=== PATIENT | female | born 2000 | race African-American/Black ===

== ENCOUNTER 2019-03-29 07:39 | Day surgery (SDC) | payer OTHER ==
[2019-03-29] VITALS (13 sets, daily range): BP systolic 125–151; BP diastolic 72–98; PULSE 76–116; RESP 12–26; Ht 162.6 cm; Wt 95.3 kg
[~2019-03-29] VITALS: Ht 162.6 cm; Wt 95.3 kg
[~2019-03-29 07:39] MED LIST: BUPIVACAINE 0.25%/EPI (SDV) 30 ML INJ INJ ONE; DESFLURANE 15 MIN ONE; TRIAMCINOLONE ACET 40 MG/ML INJ INJ ONE
[2019-03-29] MEDS ORDERED: LACTATED RINGER'S 1,000 ML IV SCH (08:30)
[2019-03-29] MEDS ORDERED: TRIAMCINOLONE ACET 40 MG/ML INJ ONE (08:58)
[2019-03-29] MEDS ORDERED: BUPIVACAINE 0.25%/EPI (SDV) 30 ML INJ ONE (08:58)
--- NOTE | 2019-03-29 09:15 | PREAC ---
Date/Time of Note Date/Time of Note DATE: 03/29/19 TIME: 09:13 Anesthesia Eval and Record Evaluation Time Pre-Procedure Interview DATE: 03/29/19 TIME: 09:13 Age 19 Sex female NPO: 8 hrs Preoperative diagnosis frequent tonsil stones Planned procedure bilateral tonsillectomy and adenoidectomy Past Medical History Past Medical History: Includes GI: Obesity Surgery & Anesthesia Issues No known issue Meds Anticoagulation: No Beta Mitzy within 24 hr: No Reason Beta Mitzy not given: Pt. not on B-Mitzy No Active Prescriptions or Reported Meds Current Medications Lactated Ringer's 1,000 ml @ 30 mls/hr Q24H IV Last administered on 03/29/19at 08:34; Admin Dose 30 MLS/HR; Start 03/29/19 at 08:30 Meds reviewed: Yes Allergies Coded Allergies: No Known Allergy (Unverified , 03/29/19) Allergies Reviewed: Yes Labs/Studies Labs Reviewed: Reviewed by anesthesiologist test: Negative Studies: ECG (nml ecg) Pre-procedure Exam Last vitals Vital Signs Date Temp Pulse Resp B/P (MAP) Pulse Ox O2 O2 Flow FiO2 Time Delivery Rate 03/29/19 97.7 76 16 125/72 100 Room Air 08:43 (89) Airway: Adequate mouth opening, Adequate thyromental dist Mallampati: Mallampati II Teeth: Normal (chipped teeth noted on lower front area) Lung: Normal Heart: Normal ASA Physical Status ASA physical status: 2 Emergency: None Planned Anesthetic General/MAC: ETT Pre-operative Attestations Prior to commencing anesthesia and surgery, the patient was re-evaluated, there was verification of: *The patient's identity *The results of appropriate recent lab work and preoperative vital signs *The above evaluation not changing prior to induction *Anesthetic plan, risk benefits, alternative and complications discussed with patient/family; questions answered; patient/family understands, accepts and wishes to proceed. CHESTER HERRERA Mar 29, 2019 09:14
--- NOTE | 2019-03-29 10:39 | HPN ---
Date/Time of Note Date/Time of Note DATE: 03/29/19 TIME: 10:39 Interval H&P Admission Note Pt. seen H&P reviewed: No system changes SYBIL DOMINIQUE M.D. Mar 29, 2019 10:39
[2019-03-29] MEDS ORDERED: NEOSTIGMINE 3 MG/3 ML SYRINGE ONE (10:45)
[2019-03-29] MEDS ORDERED: DEXAMETHASONE 4 MG/ML 5 ML INJ ONE (10:45)
[2019-03-29] MEDS ORDERED: ONDANSETRON 4 MG INJ ONE (10:45)
[2019-03-29] MEDS ORDERED: PROPOFOL 20 ML ONE (10:45)
[2019-03-29] MEDS ORDERED: MIDAZOLAM 1 MG/ML 2 ML INJ ONE (10:45)
[2019-03-29] MEDS ORDERED: ROCURONIUM 50 MG INJ ONE (10:45)
[2019-03-29] MEDS ORDERED: FENTAnyl 50 MCG/ML VIAL ONE (10:45)
[2019-03-29] MEDS ORDERED: CEFAZOLIN 1 GM INJ ONE (10:45)
[2019-03-29] MEDS ORDERED: GLYCOPYRROLATE 0.4 MG INJ ONE (10:45)
[2019-03-29] MEDS ORDERED: TRIAMCINOLONE ACET 40 MG/ML INJ INJ ONE (11:05)
[2019-03-29] MEDS ORDERED: BUPIVACAINE 0.25%/EPI (SDV) 30 ML INJ INJ ONE (11:05)
[2019-03-29] MEDS ORDERED: MIDAZOLAM 1 MG/ML 2 ML INJ IV PRN (12:00)
[2019-03-29] MEDS ORDERED: TRIMETHOBENZAMIDE 100 MG/ML VIAL IM PRN (12:00)
[2019-03-29] MEDS ORDERED: DIPHENHYDRAMINE 50 MG INJ IV PRN (12:00)
[2019-03-29] MEDS ORDERED: hydrALAzine 20 MG INJ IV PRN (12:00)
[2019-03-29] MEDS ORDERED: EPHEDrine 25 MG/5 ML SYG IV PRN (12:00)
[2019-03-29] MEDS ORDERED: IPRATROPIUM (NEB) 0.5 MG/2.5 ML AMP HHN PRN (12:00)
[2019-03-29] MEDS ORDERED: FENTAnyl 50 MCG/ML VIAL IV PRN ×3 (12:00)
[2019-03-29] MEDS ORDERED: OXYCODONE/ACETAMINOPHEN (5/325) TAB PO PRN ×2 (12:00)
[2019-03-29] MEDS ORDERED: LABETALOL HCL 20MG INJ IV PRN (12:00)
[2019-03-29] MEDS ORDERED: ONDANSETRON 4 MG INJ IV PRN (12:00)
[2019-03-29] MEDS ORDERED: HYDROmorphONE 1 MG/5 ML IV SYRINGE IV PRN ×3 (12:00)
[2019-03-29] MEDS ORDERED: ALBUTEROL 0.083% (NEB) 2.5 MG/3 ML AMP HHN PRN (12:00)
[2019-03-29] MEDS ORDERED: MEPERIDINE 25 MG INJ IV PRN (12:00)
--- NOTE | 2019-03-29 12:05 | OPR ---
Date/Time of Note Date/Time of Note DATE: 03/29/19 TIME: 12:01 Operative Report Procedure Date: Mar 29, 2019 Preoperative Diagnosis 1. MOHSEN. 2. PARTIAL UPPER AIRWAY OBSTRUCTION. 3. TONSILLAR AND ADENOID TISSUE HYPERTROPHY. Postoperative Diagnosis SAME. Operation/Procedure Performed 1. BILATERAL TONSILLECTOMY. 2, ADENOIDECTOMY. Surgeon see signature line Varnish Blender NONE. Anesthesia Type: general (WITH OT TUBE INTUBATION. 20 CC MARCIAINE 1/4% WITH EPI 1:200,000 SOLN. ) Estimated Blood Loss: 10 - 50 ml's Transfusion none Specimen LEFT AND RIGHT TONSILLAR TISSUE, ADENOID TISSUE. Grafts/Implants none Tubes/Drains NONE. Complications none Pt Condition Post Procedure: stable Disposition: PACU Indications TO IMPROVE BREATHING. Procedure Description SEE DICTATED OPERATIVE REPORT. SYBIL DOMINIQUE M.D. Mar 29, 2019 12:05
--- NOTE | 2019-03-29 12:07 | PDOCDIS ---
Discharge Instructions DIAGNOSIS Discharge Diagnosis 1. MOHSEN. 2. PARTIAL UPPER AIRWAY OBSTRUCTION. 3. TONSILLAR AND ADENOID TISSUE HYPERTROPHY. CONDITION [id number] Patient Condition: [id number] Good HOME CARE INSTRUCTIONS: [id number] Diet Instructions: Kaioh5x Regular (NO HOT OR SPICY FOODS. DRINK LOTS OF FLUIDS. ) ACTIVITY: [id number] Activity Restrictions: [id number] Slowly Increase Activity Rest between Activity Avoid heavy lifting Avoid Heavy Housework [id number] Bathing Restrictions: [id number] Tub Bath FOLLOW UP/APPOINTMENTS Follow-up Plan MY OFFICE IN 10 TO 14 DAYS. SCHOOL/WORK RELEASE May return to School/Work on: Apr 12, 2019 May return to School/Work with: No Restrictions SYBIL DOMINIQUE M.D. Mar 29, 2019 12:07
--- NOTE | 2019-03-29 12:14 | PAC ---
Date/Time of Note Date/Time of Note DATE: 03/29/19 TIME: 12:13 Post-Anesthesia Notes Post-Anesthesia Note Last documented vital signs Vital Signs Date Temp Pulse Resp B/P (MAP) Pulse Ox O2 O2 Flow FiO2 Time Delivery Rate 03/29/19 97.7 76 16 125/72 100 Room Air 08:43 (89) Activity: WNL Respiratory function: WNL Cardiovascular function: WNL Mental status: Baseline Pain reasonably controlled: Yes Hydration appropriate: Yes Nausea/Vomiting absent: Yes Jose M Regalado M.D. Mar 29, 2019 12:14
--- NOTE | 2019-03-29 14:57 | OPR ---
DATE OF OPERATION: 03/29/2019 SURGEON: Malachi Rich MD PREOPERATIVE DIAGNOSES: 1. Obstructive sleep apnea. 2. Partial upper airway obstruction. 3. Bilateral tonsillar and adenoid tissue hypertrophy. POSTOPERATIVE DIAGNOSES: 1. Obstructive sleep apnea. 2. Partial upper airway obstruction. 3. Bilateral tonsillar and adenoid tissue hypertrophy. OPERATION PERFORMED: 1. Bilateral tonsillectomy. 2. Adenoidectomy. ESTIMATED BLOOD LOSS: Less than 30 mL. COMPLICATIONS: None. SPECIMENS SENT TO LABORATORY: Left and right tonsils separately with adenoid tissue. ANESTHETIC USED: General anesthesia with orotracheal tube intubation. The patient also received 20 mL of Marcaine 0.25% with epinephrine 1:200,000 solution. The patient also required 1 mL of Kenalog 40 mg in the soft palate. The patient was also given IV Ancef and Decadron before the case was begun . FINDINGS DURING PROCEDURE: Enlarged tonsils bilaterally with chronic changes. There is also a minim al amount of adenoid tissue in the nasopharynx present. No signs of malignancies or tumors, submucou s cleft or bifid uvula seen during the procedure. INDICATIONS: Ms. Bhargavi Luis is a 19-year-old female who has history of obstructive sleep apnea wi th loud snores breathing with cessation breathing at nighttime. The patient is currently scheduled f or today's procedures which include bilateral tonsillectomy and adenoidectomy procedures as indicated . Risks, benefits, and alternatives were explained thoroughly to Ms. Luis include infection, bleedi ng, scar formation, possible damage to lingual nerve which could result in tongue numbness. She also understands the risks of possible gingival lacerations or dental trauma. The patient also understan ds the risks of general and local anesthetic agents and their possible reactions. She signed a conse nt once her questions were answered. The patient left the operating room in good and satisfactory co ndition. DESCRIPTION OF PROCEDURE: The patient was in the operating room, placed on the surgical table in fla t position, made comfortable by the anesthesiologist. The patient had EKG, saturation monitor and bl ood pressure cuff applied. At this point, the patient was then given IV injection through a previous ly started IV in the preinduction area. The patient was placed under general anesthesia. At this po int, the patient's airways were maintained and controlled before being successfully orotracheally int ubated with orotracheal cuffed tube without any complications. At this point, the eyes were protecte d and taped as the orotracheal tube was anchored to the lower lip. The vital signs were noted to be stable. The table was unlocked and rotated 90 degrees to the left. At this point, the head of the t able was extended to give better access to the oral cavity. The patient was draped out in sterile fa shion using split sheet. A brief time-out with patient identification and procedures entertained and all were in agreement. At this point, the patient had a McIvor mouth gag placed inside the oral cav ity gently. The McIvor mouth gag was then opened and suspended from an overlying Duran stand. The he ad was supported. At this point, the patient's palate was digitally palpated and not found to have a submucous cleft and visually, there was no bifid uvula present. Indirect mirror examination reveale d a minimal amount of adenoid tissue in the nasopharynx. The patient was also found to have peduncul ated tonsils bilaterally. At this point, the tonsil and adenoid tissue was injected using a 23 gauge spinal needle using Marcaine 0.25% with epinephrine 1:200,000 solution. The adenotome was then used to remove adenoid tissue from the nasopharynx and sponge packing was placed inside of the nasopharyn x to help tamponade bleeding points. The left and right tonsils were then removed down normal anatom ical planes using a fissure knife until they were removed. Sponge pack was placed inside the tonsill ar fossa I created to tamponade bleeding points. At this point, 1 mL of Kenalog 40 mg injected to so ft palate just above the uvula with 23-gauge needle. Electrocautery suction Bovie was then used to c auterize bleeding points in the tonsillar fossa bilaterally as well as the adenoid tissue bed areas. This promoted hemostasis after copious amounts of normal saline solution with bacitracin added was t hen used to irrigate the nasal cavity, nasopharynx and hypopharynx in preparation for extubation. A suction catheter was placed inside the esophagus and stomach to remove ingested tissue products and s ecretions as well. At this point, the 2 red Segal catheters were removed and small bleeding point s superior pole of the tonsil were cauterized with electrocautery. At this point, no further bleedin g was noted at the end of the procedure. The patient was then reversed from general anesthetic agent s, extubated in the operating room, taken to recovery room, is currently doing well, expect to be dis charged home unless postoperative complications develop. Dictated By: MALACHI JUNG/MINO Conf#: [id number] DID#: [id number]
== END 2019-03-29 14:02 | disposition home or self-care (01) ==
LOC: SDS 07:39
PROVIDERS: ATTEND Otolaryngology Otolaryngology/Facial Plastic Surgery
DX: J35.3 Hypertrophy of tonsils with hypertrophy of adenoids (principal); G47.33 Obstructive sleep apnea (adult) (pediatric); J98.8 Other specified respiratory disorders
CPT/HCPCS: 42821; 84703; 88304; J0690; J1100; J2250; J2405; J2710; J3010; Z7512; Z7610

== ENCOUNTER 2019-07-05 13:19 | Emergency (ER) | payer OTHER ==
[~2019-07-05] VITALS: Ht 162.6 cm; Wt 92.8 kg
[~2019-07-05 13:19] MED LIST changes: -BUPIVACAINE 0.25%/EPI (SDV) 30 ML INJ INJ ONE; +CEPH-443 PO; -DESFLURANE 15 MIN ONE; +HYDR28OI2 TP; -TRIAMCINOLONE ACET 40 MG/ML INJ INJ ONE
[2019-07-05 13:20] VITALS: BP 120/81; PULSE 87; RESP 12; Ht 162.6 cm; Wt 92.8 kg
== END 2019-07-05 13:32 | disposition home or self-care (01) ==
LOC: FTE 13:19 → E/R 13:32
DX: S80.862A Insect bite (nonvenomous), left lower leg, initial encounter (principal); L08.9 Local infection of the skin and subcutaneous tissue, unspecified; W57.XXXA Bitten or stung by nonvenomous insect and other nonvenomous arthropods, initial encounter; Y92.9 Unspecified place or not applicable
CPT/HCPCS: 99283